=== PATIENT | male | born 1960 | race Two or more races ===

== ENCOUNTER 2017-09-18 11:22 | Emergency (ER) | payer MEDICARE, MEDICAID ==
[~2017-09-18] VITALS: Ht 165.1 cm; Wt 64.4 kg
[2017-09-18 11:27] VITALS: BP 127/83
== END 2017-09-18 12:58 | disposition home or self-care (01) ==
LOC: ER 11:24
DX: S00.03XA Contusion of scalp, initial encounter (principal); W22.8XXA Striking against or struck by other objects, initial encounter; Y93.72 Activity, wrestling; Y92.89 Other specified places as the place of occurrence of the external cause; Y99.8 Other external cause status
CPT/HCPCS: 70450-TC; A4606; Z7610